=== PATIENT | female | born 1950 | race Caucasian/White ===

== ENCOUNTER 2017-04-26 01:15 | Inpatient (IN) | payer MEDICARE, BC ==
[~2017-04-26] VITALS: Ht 167.6 cm; Wt 74.7 kg
--- NOTE | ~2017-04-26 | CO ---
ADMIT: 04/26/2017 RM/LOC: 533 [facility] MR#: [id number] [address] [address] [address] [place] [address] Consultation SEX: F AGE: 67 : 1950 Corrected: 04/26/2017 1019 joshua DATE OF CONSULTATION: 04/26/2017 ATTENDING PHYSICIAN: Marleny Duarte CONSULTING PHYSICIAN: Kashif Ca MD SUBJECTIVE: The patient is a 67-year-old, white female, who got up out of bed last night and fell over. She is not sure if she tripped or what happened. She just had some pain and fell. She is on some Plavix. Complains of pain in the groin. The patient was brought to [facility] and x-ray showed left displaced femoral neck fracture. PHYSICAL EXAMINATION: The patient's skin is intact. Left lower extremity is shortened and externally rotated. Neurovascular appears to be intact. X-rays show left displaced femoral neck fracture. I do not see any evidence of any pathologic fractures. ASSESSMENT AND PLAN: Left displaced femoral neck fracture. At this point in time, this might have been an old stress fracture that broke or again, she just may not remember falling last night as she woke up and got out of bed fairly quickly and might have lost her balance. We will take a look at the bone when we plan left hip bipolar. The patient understands the risks and benefits of surgical intervention and desires to proceed after medical clearance. Kashif Ca MD/ arnell JOB #: [id number] CC: Marleny Duarte, Attending Physician Marleny Duarte, Family Physician Corrected: 04/26/2017 1019 joshua
[~2017-04-26 01:15] MED LIST: ASA CHILDREN'S81 MG PO; CARDIZEM CD240 M1 PO; HYDROCODONE 10M10 MG PO; LASIX DPS20 MG PO; LIDODERM PATC1 PATCH TP; MIRAPEX DPS0.25 MG PO; MOBIC15 MG PO; PREMARIN0.625 MG PO; TOPROL XL DPS50 MG PO; TREXALL15 MG PO; TYLENOL DPS325 MG PO; ULTRAM DPS50 MG PO; VITAMIN D31000 UNIT PO
--- NOTE | 2017-04-27 01:26 | ER ---
ADMIT: 04/26/2017 RM/LOC: 533 [facility] MR#: [id number] [facility]#: [id number] [address] [address] [address] [place] [address] Emergency Room Report SEX: F AGE: 67 : 1950 DATE: 04/26/2017 TIME: 0115 hours. CHIEF COMPLAINT: Partial trauma. HISTORY OF PRESENT ILLNESS: The patient is a 67-year-old, who fell, she was getting up to go to the bathroom. She hit her head and cannot bear weight on her left hip. She says that she remembers hitting the ground. Does not think she passed out, but she is having significant pain, called the ambulance. It happened just prior to arriving to emergency department. REVIEW OF SYSTEMS: No loss of consciousness. Her head hurts a little bit, but mostly the left hip. Rest of review of systems all normal. PAST MEDICAL HISTORY: Significant for CVA in the past, brain aneurysm clipped, COPD, hypertension, back surgery, reflux, chronic pain, high cholesterol. MEDICATIONS: Include; 1. Plavix. 2. Enalapril. 3. Baclofen. 4. Fluoxetine. 5. Potassium. 6. Gabapentin. 7. Carvedilol. 8. Tylenol. 9. Stool softener. 10.Atorvastatin. 11.Pramipexole. 12.Symbicort. 13.Spironolactone. 14.Vitamin D. 15.Amlodipine. 16.Lasix. 17.Tramadol. 18.Omeprazole. 19.Aspirin. ALLERGIES: NO ALLERGIES. SOCIAL HISTORY: She lives in the [place] area. She does walk with a walker at times. PHYSICAL EXAMINATION: VITAL SIGNS: Her temp is 98.8, pulse 74, respirations 16, blood pressure 170/72, and saturating 95%. GENERAL: She is in no acute distress. HEENT: Head has a large contusion to her left forehead, otherwise atraumatic ADMIT: 04/26/2017 RM/LOC: 533 [facility] MR#: [id number] [address] [address] [address] [place] [address] Emergency Room Report SEX: F AGE: 67 : 1950 and normocephalic. Pupils are equal, round, and reactive to light. Extraocular movements intact. TMs clear. Throat clear. NECK: Soft, supple. No midline tenderness. LUNGS: Clear to auscultation without crackles or wheeze. HEART: Regular. ABDOMEN: Soft. EXTREMITIES: Her left hip is slightly shortened, severe pain with any range of motion. She has an abrasion superficial to her left ring finger where her ring was. A small contusion to her left forearm. NEURO: She is alert, nonfocal. EMERGENCY DEPARTMENT COURSE: We did call a partial trauma. CT scan of her head revealed an old CVA, as no acute findings. CBC was normal except white count 21.2, hemoglobin 11.1. Chemistries normal except potassium 3.6. EKG was sinus rhythm, rate 79, no acute changes. Her chest x-ray was essentially negative. Her left hip and pelvis revealed a femoral neck fracture. At this point, I talked to Dr. Melgar and Dr. Ca will admit to the hospital. ASSESSMENT: 1. Hip fracture. 2. Fall. 3. Head contusion. 4. On Plavix, so partial trauma. PLAN: Admit to the hospital. Rommel Osman MD/ sofia JOB #: [id number] CC: Marleny Duarte MD, Attending Physician Marleny Duarte MD, Family Physician
--- NOTE | 2017-05-02 13:58 | OR ---
ADMIT: 04/26/2017 RM/LOC: 533 [facility] MR#: [id number] [address] [address] [address] [facility] [place] [address] Operative/Delivery Room Report SEX: F AGE: 67 : 1950 SURGERY DATE: 04/26/2017 SURGEON: Kashif Ca MD PREOPERATIVE DIAGNOSIS: Left displaced femoral neck fracture. POSTOPERATIVE DIAGNOSIS: Left displaced femoral neck fracture. PROCEDURE PERFORMED: Left hip bipolar placement using a size 7 press-fit DePuy fracture stem. We used a +5 neck length on a 49 outer diameter bipolar head. PRINCIPAL SECRETARY: ESTER Schultz ANESTHESIA: General. ESTIMATED BLOOD LOSS: 100 mL. FLUIDS: Per anesthetic record. COMPLICATIONS: None. DRAINS: None. TOURNIQUET TIME: None. CONDITION: The patient returned to the recovery room in fair condition. INDICATIONS: The patient sustained the above fracture. She desires surgical intervention. She understood the risks and benefits of procedure and desired to proceed. DESCRIPTION OF PROCEDURE: The patient was taken the OR, underwent general anesthesia, moved in the OR table, laid in the right lateral decubitus position. All bony prominences were well padded. Axillary roll was placed. Left hip was prepped and draped in the usual sterile fashion. An incision was made for 8 inches, centered over the greater trochanter through the skin and subcutaneous tissue with a skin knife. IT band and gluteus tiffanie fascia split in line with the skin incision using a Metzenbaum scissors. Gluteus tiffanie was split in line with its fibers bluntly and Charnley retractor placed. External rotators identified, tagged, cut, and reflected posteriorly. Capsule was then T'd and reflected superiorly and inferiorly. I removed the femoral head and cut the femoral neck at 45-degree angle to the long axis of the shaft of the femur, 1 fingerbreadth above the lesser trochanter. I removed any debris. I then used a box osteotome, removed some lateral femoral neck cortex. I then opened the canal using a T-handle reamer and then lateralized this using a lateralizing reamer. I then sequentially reamed and broached to a size 7. I calcar reamed the broach and removed all debris. I then placed a ADMIT: 04/26/2017 RM/LOC: 533 [facility] MR#: [id number] [address] [address] [address] [place] [address] Operative/Delivery Room Report SEX: F AGE: 67 : 1950 trial 49 bipolar head with a +5 neck length on my stem and reduced the hip. It had excellent range of motion, stability. Thus trial components were then removed. The hip was thoroughly irrigated with bacitracin solution and dried. I impacted the components and then reduced the hip again. I ran the hip through range of motion, it had excellent range of motion and stability. Thus, the capsule was repaired using #1 Vicryl. External rotators were repaired in the piriformis fossa through drill holes. The IT band closed using #1 Vicryl. Gluteus tiffanie fascia closed using #1 Vicryl. Subcutaneous tissue closed in layers using 2-0 Vicryl. Skin closed using keith. Wounds were washed, dried, dressed with sterile Adaptic, 4x4s, ABD, and Medipore tape. Drapes removed. The patient reversed from general anesthesia, placed in a knee immobilizer, transferred back to the recovery room in fair condition. Kashif Ca MD/ sofia JOB #: [id number] CC: Marleny Duarte, Attending Physician Marleny Duarte, Family Physician
--- NOTE | 2017-05-09 06:29 | HP ---
ADMIT: 04/26/2017 RM/LOC: 533 [facility] MR#: [id number] [facility]#: [id number] [address] [address] [address] [place] [address] History and Physical SEX: F AGE: 67 : 1950 DATE OF SERVICE: CHIEF COMPLAINT: Left hip fracture. HISTORY OF PRESENT ILLNESS: The patient is a 67-year-old female, who presented to the emergency room with complaint of left leg pain. She believes she got out of bed in the middle of night to go to the bathroom but only fully awoke as she had sudden onset pain in her left leg and it gave out from under her. She describes scenario consistent with a pathologic fracture. She denies any recent fevers or chills, chest pain, shortness of breath, UTI symptoms, nausea, vomiting, diarrhea, or syncope. She does not believe that she blacked out though she did hit her head in her upper extremity as she fell. The patient is on aspirin and Plavix and has significant hematoma and bruising already present. X-rays in the ER were consistent with a left femoral head fracture. PAST MEDICAL HISTORY: 1. Cerebrovascular disease with right-sided ischemic stroke in June 2016. 2. Brain aneurysm coiling in August 2016. 3. Psoriatic arthritis. 4. Hypertension. 5. Spinal stenosis resulting in chronic back pain and disfigurement. 6. Hypertension. PAST SURGICAL HISTORY: D and C x2, bladder sling, lumbar laminectomy, cerebral aneurysm clipping. MEDICATIONS: 1. Clopidogrel 75 mg p.o. daily. 2. Enalapril 20 mg p.o. daily. 3. Baclofen 10 mg p.o. t.i.d. 4. Fluoxetine 20 mg p.o. daily. 5. Potassium 10 mEq p.o. daily. 6. Gabapentin 300 mg p.o. t.i.d. 7. Carvedilol 12.5 mg p.o. b.i.d. 8. Tylenol 500 mg p.o. q.4 hours p.r.n. pain. 9. Stool softener one tab p.o. daily. 10.Atorvastatin 40 mg p.o. at bedtime. 11.Pramipexole 0.25 mg p.o. at bedtime. 12.Montelukast 10 mg p.o. daily. 13.Spironolactone 25 mg p.o. daily. 14.Vitamin D3, 2000 International Units p.o. daily. 15.Amlodipine 10 mg p.o. daily. 16.Furosemide 20 mg p.o. daily. 17.Tramadol 50 mg p.o. q.i.d. p.r.n. pain. 18.Omeprazole 20 mg p.o. at bedtime. 19.Baby aspirin 81 mg p.o. daily. ALLERGIES: NO KNOWN MEDICAL ALLERGIES. ADMIT: 04/26/2017 RM/LOC: 533 [facility] MR#: [id number] [address] [address] [address] [place] [address] History and Physical SEX: F AGE: 67 : 1950 FAMILY HISTORY: Father, cerebrovascular accident and history of peripheral vascular disease. Mother had osteoporosis. SOCIAL HISTORY: The patient lives in [place] with her . She has a 45 pack year tobacco use, quit 10 years ago. She has occasional alcohol. REVIEW OF SYSTEMS: A 10-point review of systems is negative except as noted in the HPI. PHYSICAL EXAMINATION: VITAL SIGNS: 147/62, 78, 20, 96%, afebrile. GENERAL: Awake, alert, and oriented. No acute distress, appears comfortable. HEENT: Head is normocephalic though with large hematoma above the left eyebrow. Pupils are equal, round, and reactive to light. Extraocular muscles are intact. Mucous membranes are dry. NECK: Supple. Nontender to palpation. Thyroid is not palpable. HEART: Regular rate and rhythm without murmur. LUNGS: Clear to auscultation bilaterally. ABDOMEN: Soft, nontender to palpation. Bowel sounds are present. EXTREMITIES: Without cyanosis, clubbing, or edema. Left lower extremity appears shortened on examination. SKIN: Approximately 3 cm x 2 cm hematoma present above left eyebrow. Left upper extremity with multiple ecchymoses. PSYCH: Normal mood and affect. NEURO: Grossly intact. LABORATORY DATA: WBC 21.2, HGB 11.1, PLT 335, creatinine 0.9, INR less than 1. Pelvic film with left femoral head fracture. ASSESSMENT: 1. Left femoral head fracture. ADMIT: 04/26/2017 RM/LOC: 533 [facility] MR#: [id number] [address] [place] [address] [place] [address] History and Physical SEX: F AGE: 67 : 1950 2. Possible osteoporosis given possible pathologic fracture. 3. History of cerebrovascular accident. 4. Severe spinal stenosis with chronic lumbar pain and disfigurement. 5. Psoriatic arthritis. PLAN: Plan is to keep the patient n.p.o. overnight and she will go to the OR tomorrow. We will make oxycodone p.o. and morphine IV available for breakthrough pain in addition to her home pain regimen. At this time, it sounds like the fracture was pathologic. There is no evidence of heart arrhythmia, syncopal episode, or illness leading to fall, but we will assess further if needed while inpatient. The patient and her voiced understanding of this plan and are agreeable. Mey Melgar MD Resident / Kevin Garner MD / sofia JOB #: [id number] CC: Marleny Duarte, Attending Physician Marleny Duarte, Family Physician
--- NOTE | 2017-05-11 07:30 | DS ---
ADMIT: 04/26/2017 RM/LOC: 533 [facility] MR#: [id number] [facility]#: [id number] [address] [address] [address] [place] [address] General Discharge Summary SEX: F AGE: 67 : 1950 ADMISSION DATE: 04/26/2017 DISCHARGE DATE: 04/30/2017 ADMISSION DIAGNOSIS: Mildly displaced left femoral neck fracture. DISCHARGE DIAGNOSIS: Mildly displaced left femoral neck fracture status post bipolar repair. SECONDARY DIAGNOSES: 1. Cerebrovascular accident. 2. Right-sided ischemic stroke in June 2016. 3. Brain aneurysm coiling in August 2016. 4. Psoriatic arthritis. 5. Spinal stenosis with chronic back pain and disfigurement. 6. Hypertension. CONSULTATIONS: Orthopedics. PROCEDURE: Left hip bipolar on 04/26/2017. HISTORY OF PRESENT ILLNESS: The patient presented to the emergency room with a complaint of left leg pain after she got out of bed in the middle of night and sustained a fall. She reports that she does not remember awakening in the mail in night and only awoke as she felt her legs give out from under her. Mechanical or pathologic cause of hip fracture was suspected. Head CT was completed and was without acute pathology. HOSPITAL COURSE: The patient was taken to the OR on hospital day 2, where she underwent a bipolar procedure without complication. Her initial hemoglobin was 11.1 and decreased to 9.0 the morning after surgery with the ultimate eliana at 7.4. The patient was started on Lovenox for DVT prophylaxis 12 hours postop and continued on aspirin and Plavix for secondary prevention of cerebrovascular accident. She had significant oozing from her wound and so the Lovenox was held on hospital day 3, and she was placed in a hip spica wrap. Her recovery was otherwise uncomplicated except for intermittent urinary retention suspected secondary to narcotics. Blackwood catheter was placed for this reason. The patient was able to participate with therapy and was determined to be stable to transfer to inpatient rehab unit on 04/30/2017. MEDICATIONS AT DISCHARGE: 1. Aldactone 25 mg p.o. daily. 2. Colace 100 mg p.o. daily. 3. Coreg 12.5 mg p.o. b.i.d. 4. Potassium chloride 20 mEq p.o. daily. 5. Lasix 20 mg p.o. daily. 6. Lioresal 10 mg p.o. t.i.d. 7. Lipitor 40 mg p.o. at bedtime. 8. Mirapex 0.25 mg p.o. at bedtime. 9. Neurontin 300 mg p.o. t.i.d. ADMIT: 04/26/2017 RM/LOC: 533 [facility] MR#: [id number] [address] [address] [address] [place] [address] General Discharge Summary SEX: F AGE: 67 : 1950 10.Norvasc 10 mg p.o. daily. 11.Plavix 75 mg p.o. daily. 12.Prozac 20 mg p.o. daily. 13.Senokot 1 tab p.o. b.i.d. 14.Singulair 10 mg p.o. daily. 15.Vasotec 20 mg p.o. daily. 16.Vitamin D 2000 International Units p.o. daily. 17.Lovenox 40 mg subcutaneous q.24 hours through 05/07/2017. 18.Tylenol 650 mg p.o. q.4 hour p.r.n. pain. 19.Ultram 50 mg p.o. q.i.d. p.r.n. pain. 20.Omeprazole 20 mg p.o. at bedtime. DISPOSITION: To inpatient rehab unit followup with Orthopedics 2 weeks following discharge with Dr. Garner in 1 to 2 weeks after discharge and plan to have Blackwood catheter removed on 05/08/2017. Mey Melgar MD Resident / Marleny Duarte MD / sofia JOB #: [id number] CC: Marleny Duarte MD, Attending Physician Marleny Duarte MD, Family Physician
[2017-05-21] MEDS ORDERED: COREG DPS6.25 MG PO (15:16)
[2017-05-21] MEDS ORDERED: ASA325 MG PO (15:16)
[2017-05-21] MEDS ORDERED: NEURONTIN300 MG PO (15:17)
[2017-05-21] MEDS ORDERED: MIRAPEX DPS0.25 MG PO (15:17)
[2017-05-21] MEDS ORDERED: LIPITOR40 MG PO (15:17)
[2017-05-21] MEDS ORDERED: MONTELUKAST SOD10 MG PO (15:18)
[2017-05-21] MEDS ORDERED: PRILOSEC DPS20 MG PO (15:18)
[2017-05-21] MEDS ORDERED: PROZAC DPS20 MG PO (15:18)
[2017-05-21] MEDS ORDERED: NORVASC DPS10 MG PO (15:18)
[2017-05-21] MEDS ORDERED: PLAVIX75 MG PO (15:18)
[2017-05-21] MEDS ORDERED: VASOTEC DPS20 MG PO (15:19)
[2017-05-21] MEDS ORDERED: VITAMIN B-121000 MCG PO (15:20)
[2017-05-21] MEDS ORDERED: VITAMIN D1000 UNI1 PO (15:20)
[2017-05-21] MEDS ORDERED: ULTRAM DPS50 MG PO (15:20)
[2017-05-21] MEDS ORDERED: MAALOX DPS30 ML PO (15:20)
[2017-05-21] MEDS ORDERED: TYLENOL EXTRA500 M1 PO (15:20)
[2017-05-21] MEDS ORDERED: FEOSOL-DPS325 MG PO (15:21)
[2017-05-21] MEDS ORDERED: PROVENTIL HFA6.7 GM IH (15:21)
[2017-05-21] MEDS ORDERED: ASCORBIC ACID500 MG PO (15:21)
[2017-05-21] MEDS ORDERED: SURFAK DPS240 MG PO (15:22)
== END 2017-04-30 15:05 | disposition short-term general hospital (02) | DRG 470 ==
LOC: ER 01:15 → 5MS 03:05
PROVIDERS: ADMIT Family Medicine
PROC: 0SRS01A Replacement of Left Hip Joint, Femoral Surface with Metal Synthetic Substitute, Uncemented, Open Approach (ICD-10-PCS; principal; 2017-04-26)
DX: S72.052A Unspecified fracture of head of left femur, initial encounter for closed fracture (principal); J44.9 Chronic obstructive pulmonary disease, unspecified; L40.50 Arthropathic psoriasis, unspecified; D62 Acute posthemorrhagic anemia; S00.93XA Contusion of unspecified part of head, initial encounter; W18.30XA Fall on same level, unspecified, initial encounter; R33.9 Retention of urine, unspecified; E87.6 Hypokalemia; M48.06 Spinal stenosis, lumbar region; F32.9 Major depressive disorder, single episode, unspecified; I10 Essential (primary) hypertension; E78.5 Hyperlipidemia, unspecified; K21.9 Gastro-esophageal reflux disease without esophagitis; Z79.82 Long term (current) use of aspirin; Z86.79 Personal history of other diseases of the circulatory system; Z86.73 Personal history of transient ischemic attack (TIA), and cerebral infarction without residual deficits; Z87.891 Personal history of nicotine dependence

== ENCOUNTER 2017-04-30 15:01 | Inpatient (IN) | payer MEDICARE, BC ==
[~2017-04-30] VITALS: Ht 167.6 cm; Wt 64.5 kg
--- NOTE | 2017-05-09 11:04 | CO ---
ADMIT: 04/30/2017 RM/LOC: 613 [facility] MR#: [id number] [address] [address] [address] [place] [address] Consultation SEX: F AGE: 67 : 1950 DATE OF CONSULTATION: 05/05/2017 ATTENDING PHYSICIAN: Robe Rich CONSULTING PHYSICIAN: Fabrice Soliman MD REASON FOR CONSULTATION: Acute kidney injury and hyponatremia. HISTORY OF PRESENT ILLNESS: The patient is a 67-year-old female, who was admitted to the hospital on the 26 of April with a left hip fracture. She was taken to the OR that same day and had surgical correction. She is currently on the rehab in the inpatient rehab unit. Her creatinine 4 days ago was normal at 0.7. Over the last 3 or 4 days, her creatinine has been 1.1 followed by 1.3 and then 2.1 this morning. She is also noted to be hyperkalemic. Of note, the patient has had poor oral intake and has hardly had any food over the last 48 hours per family report. She has been hypotensive as well and is on multiple antihypertensive agents including Aldactone, Lasix, Norvasc, Vasotec as well as Coreg. Her blood pressure is noted to be in 80s to 90s systolic over the preceding 24 to 48 hours. She also complains of some burning urination and some suprapubic abdominal pain. She denies any dyspnea, but is barely able to keep up and has been very sleepy and somnolent. She has chronic left-sided weakness owing to a previous CVA. Otherwise, she denies any cardiac complaints. REVIEW OF SYSTEMS: A complete review of systems is negative in detail except dementia as mentioned in history of present illness above. PAST MEDICAL HISTORY: 1. Hypertension. 2. Psoriatic arthritis. 3. Neurofibromatosis. 4. Low-back pain. 5. Middle cerebral artery aneurysm. 6. Left-sided hemiparesis. 7. Lumbar laminectomy. 8. D and C. 9. Bladder sling procedure. ALLERGIES: NO KNOWN DRUG ALLERGIES. MEDICATIONS: Reviewed and addressed in the chart. FAMILY HISTORY: No family history of chronic kidney disease or renal replacement therapy. SOCIAL HISTORY: She lives in [place] with her . She is retired. She was a former smoker and quit smoking more than 10 years ago. She drinks alcohol socially. No recreational drug use. ADMIT: 04/30/2017 RM/LOC: 613 [facility] MR#: [id number] [address] [address] [place] [address] Consultation SEX: F AGE: 67 : 1950 PHYSICAL EXAMINATION: VITAL SIGNS: Temperature 98.7 Fahrenheit, pulse 58, blood pressure 98/46. GENERAL: She is in bed, comfortable. She has a bruise in the left supraorbital area. HEENT: Extraocular movements are intact. Oral mucosa is dry. NECK: Supple. No JVD. CHEST: Clear to auscultation. CVS: Regular rhythm. S1, S2 heard. No rubs or gallops. ABDOMEN: Soft, nontender. EXTREMITIES: No edema. SKIN: She has multiple neurofibromatosis lesions all over her body. NEUROLOGIC: Cranial nerves II through XII are grossly normal. She has left- sided hemiparesis. MUSCULOSKELETAL: Major joints are within normal limits. PSYCHIATRIC: Affect and memory within normal limits. LABORATORY DATA: Reviewed. BMP with sodium 130, potassium 5.3, CO2 of 22, creatinine 2.1. Hemoglobin 9. Calcium 9.5, phosphorus 4.3. Trend of serum creatinine outlined in the HPI above. ASSESSMENT AND PLAN: 1. Acute kidney injury-likely prerenal in etiology. I will hold her antihypertensive medications especially renin angiotensin blockade, Aldactone, and diuretics. I will put her on some IV fluids for hydration and monitor her kidney function. I recommend supportive renal care, maintaining hemodynamics, and avoiding nephrotoxins such as NSAIDs, IV contrast, or Fleets enemas. 2. Hyperkalemia-in the setting of acute kidney injury, exogenous potassium supplements and dual renin angiotensin blockade. As noted above, I will hold her antihypertensive agents and provide her with IV fluids. I will monitor her potassium levels for the time being. 3. Hyponatremia-secondary to volume depletion. I will check urine studies. Pain and nausea could be potent stimuli for ADH secretion. I will put her on some IV isotonic normal saline as well. Thank you for this consultation. Please do not hesitate to contact with any questions. Fabrice Soliman MD/ sofia JOB #: [id number] CC: Robe Rich, Attending Physician Robe Rich, Family Physician
[2017-05-21] MEDS ORDERED: COREG DPS6.25 MG PO (15:16)
[2017-05-21] MEDS ORDERED: ASA325 MG PO (15:16)
[2017-05-21] MEDS ORDERED: LIPITOR40 MG PO (15:17)
[2017-05-21] MEDS ORDERED: MIRAPEX DPS0.25 MG PO (15:17)
[2017-05-21] MEDS ORDERED: NEURONTIN300 MG PO (15:17)
[2017-05-21] MEDS ORDERED: NORVASC DPS10 MG PO (15:18)
[2017-05-21] MEDS ORDERED: MONTELUKAST SOD10 MG PO (15:18)
[2017-05-21] MEDS ORDERED: PRILOSEC DPS20 MG PO (15:18)
[2017-05-21] MEDS ORDERED: PROZAC DPS20 MG PO (15:18)
[2017-05-21] MEDS ORDERED: PLAVIX75 MG PO (15:18)
[2017-05-21] MEDS ORDERED: VASOTEC DPS20 MG PO (15:19)
[2017-05-21] MEDS ORDERED: MAALOX DPS30 ML PO (15:20)
[2017-05-21] MEDS ORDERED: VITAMIN D1000 UNI1 PO (15:20)
[2017-05-21] MEDS ORDERED: TYLENOL EXTRA500 M1 PO (15:20)
[2017-05-21] MEDS ORDERED: VITAMIN B-121000 MCG PO (15:20)
[2017-05-21] MEDS ORDERED: ULTRAM DPS50 MG PO (15:20)
[2017-05-21] MEDS ORDERED: FEOSOL-DPS325 MG PO (15:21)
[2017-05-21] MEDS ORDERED: PROVENTIL HFA6.7 GM IH (15:21)
[2017-05-21] MEDS ORDERED: ASCORBIC ACID500 MG PO (15:21)
[2017-05-21] MEDS ORDERED: SURFAK DPS240 MG PO (15:22)
--- NOTE | 2017-06-14 14:36 | DS ---
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 Other conditions per initial H and P. Other diagnoses per hospital course below. HOSPITAL COURSE: Please see my initial H and P for details prior to transfer to the IRU. Pain and bowel regimen were adjusted. Blackwood was removed the following day with PVRs to check for urinary retention. Dietitian followed optimize nutrition. Pharmacy followed optimize medication management. Lovenox was continued for DVT prophylaxis. Tramadol adjusted for pain given with Tylenol. Colace was changed to Senokot-S for constipation. Baclofen decreased to 5 mg. Neurontin decreased to 100 mg. Lipitor adjusted for daytime for hyperlipidemia. Protonix switched to Pepcid to decrease risk of C. diff. Lab was monitored regularly. Postvoid residuals were initially 291 and 287. OxyIR was started for pain. Gabapentin increased to 300 mg for pain and p.r.n. for constipation. Feosol and vitamin C for iron deficiency with anemia. OxyContin was started for pain 10 mg at night. OxyIR 5 mg scheduled before therapies for help with progress. Tramadol discontinued. Baclofen discontinued. Hyponatremia addressed with no free water, Gatorade, G2, Powerade Zero. Fluid restriction less than 2.5 L per day. Pepcid discontinued and switched back to Protonix for GERD. Maalox use p.r.n. or Tums alternatively for GERD. Sodium came up to 130. No fluid restriction. No free water. Just increase Gatorade or Powerade and no free water. Thermotabs started two p.o. b.i.d. OxyContin increased to 20 mg at night. OxyIR scheduled before therapies. Increased to 10 mg as well as p.r.n. Vitamin D deficiency slightly low 20,000 units once and then continued on a regular dose daily. Neurontin adjusted to 300 mg q.i.d. Tylenol scheduled 4 times a day along with Neurontin. The patient was started to have side effects on any pain medications, so discontinued scheduled OxyContin and decreased OxyIR to 5 mg. She was more awake then, so we changed to OxyContin 10 mg p.o. at bedtime and OxyIR 5 mg q.3 hours p.r.n. pain. We watched respiratory rate and O2 sats until the somnolence was completely resolved. We consulted Nephrology for acute renal failure with hyponatremia. UA with micro was obtained, no culture. Chest x-ray for leukocytosis and hypoxemia. Differential was added to the CBC from that morning's lab. Lovenox decreased to 30 mg until renal function improved. Nephrology saw the patient on 05/05/2017, appreciate assistance. Lovenox discontinued and switched to heparin because of the acute renal failure. Postvoid residual came down 11 mL. IV fluids discontinued. Blackwood removed and reinserted by Nephrology for a small time. Labs closely followed. PVRs came down to 63 and 175 which is within normal limits. Voiding trial continued. PVRs until less than 300 mL x2. IV fluids discontinued. B12 of 1000 mcg IM once and then 1000 mcg daily. ADMIT: 04/30/2017 RM/LOC: 613 [facility] MR#: [id number] [place] [address] [place] [id number] [address] [place] [address] General Discharge Summary SEX: F AGE: 67 : 1950 Transferrin saturation followed up on. Gabapentin adjusted to t.i.d. Heparin discontinued. Switch back to Lovenox after acute renal failure resolves. Continue iron deficiency with anemia, so IV Feraheme was given once and repeated in 3-5 days for a total of 2 doses. Enalapril and furosemide restarted for hypertension. BMP followed up on by Nephrology. Postvoid residual 116 mL. Lovenox discontinued on 05/12/2017 and was ambulating good enough distance to prevent DVT. Feosol and vitamin C are no longer necessary after given the IV iron in order to prevent side effects from constipation. OxyContin adjusted to 10 mg q.12 hours for pain. Vasotec adjusted to 10 mg b.i.d. for hypertension. Reglan given for p.r.n. nausea and vomiting. Aspirin started 325 mg p.o. daily for prophylaxis . EdemaWear used for edema in place of TEDs. Blockton removed on 05/15/2017. Coreg decreased to 6.25 mg due to some nonspecific low blood pressure readings and mild bradycardia. Daily labs discontinued. Simethicone p.r.n. bloating. OxyIR switched to tramadol. OxyContin switched to at bedtime only. Ventolin inhaler from home okay to use. Norvasc decreased to 5 mg with continued nonspecific low blood pressure readings. Lasix discontinued. Hemoglobin followed upon prior to discharge, it was up to 9.8. Prior to discharge, discontinued EdemaWear. Discontinued OxyContin. Changed scheduled Tylenol [address] Duarte and anticipated discharge. Did use some sore throat lozenges prior to discharge. Blood pressure and heart rate twice per shift. Lab prior to discharge again on 05/20/2017. The patient was medically stable at the time of discharge. Please see IRU interdisciplinary discharge summary for details regarding progress in therapy. DISCHARGE DISPOSITION: Home with . We will continue PT, OT, ST, balance mobility has all equipment needed for home. is very attentive and supportive and provided transport upon discharge. DISCHARGE MEDICATIONS: Please see discharge med rec. She was given: 1. #50 of Ultram, 2 refills. 2. Feosol and vitamin C recommended for 1 month and then may discontinue. FOLLOWUP: Dr. Duarte on June 06. In 4 weeks, follow up with Dr. Ca as well. Robe Rich MD/ sofia JOB #: [id number] CC:
== END 2017-05-20 10:20 | disposition home or self-care (01) | DRG 560 ==
LOC: 6IRU 15:01
PROVIDERS: ADMIT Physical Medicine & Rehabilitation
PROC: F07Z9ZZ Gait Training/Functional Ambulation Treatment (ICD-10-PCS; principal; 2017-04-30)
PROC: F08Z0FZ Bathing/Showering Techniques Treatment using Assistive, Adaptive, Supportive or Protective Equipment (ICD-10-PCS; principal; 2017-04-30)
PROC: F08Z1ZZ Dressing Techniques Treatment (ICD-10-PCS; principal; 2017-04-30)
DX: S72.002D Fracture of unspecified part of neck of left femur, subsequent encounter for closed fracture with routine healing (principal); D62 Acute posthemorrhagic anemia; N17.9 Acute kidney failure, unspecified; I69.354 Hemiplegia and hemiparesis following cerebral infarction affecting left non-dominant side; E87.1 Hypo-osmolality and hyponatremia; N39.0 Urinary tract infection, site not specified; E53.8 Deficiency of other specified B group vitamins; G89.18 Other acute postprocedural pain; E55.9 Vitamin D deficiency, unspecified; K21.9 Gastro-esophageal reflux disease without esophagitis; K59.00 Constipation, unspecified; E83.52 Hypercalcemia; I10 Essential (primary) hypertension; I73.9 Peripheral vascular disease, unspecified; R26.89 Other abnormalities of gait and mobility; M81.0 Age-related osteoporosis without current pathological fracture; R60.9 Edema, unspecified; M54.5 Low back pain; D50.9 Iron deficiency anemia, unspecified; E78.5 Hyperlipidemia, unspecified; R27.8 Other lack of coordination; G89.29 Other chronic pain; M62.81 Muscle weakness (generalized); E87.5 Hyperkalemia; R03.1 Nonspecific low blood-pressure reading; R09.02 Hypoxemia; W19.XXXD Unspecified fall, subsequent encounter; Z87.891 Personal history of nicotine dependence